=== PATIENT | male | born 1960 ===

== ENCOUNTER → 2019-06-27 | Day surgery (SDC) | payer OTHER ==
[~2019-06-27] VITALS: Ht 177.8 cm; Wt 95.3 kg
[~2019-06-27] MED LIST: SIMVASTATIN5 MG PO
--- NOTE | ~2019-06-27 | POSTOPNOTE ---
[place], [place] POSTOPERATIVE PROGRESS NOTE NAME: WENDY RAZO UNIT #: [id number] ROOM: DOCTOR: JUSTIN LYNN MD BIRTHDATE: [birth year] DATE: 06/27/19 GI NOTE PREOPERATIVE DIAGNOSIS: RIGHT LOWER QUADRANT PAIN, ABDOMINAL PAIN, FAMILY HISTORY OF COLON CA POSTOP LOWER GI PROC/FINDINGS: LOWER GI PROCEDURE/SURGERY: COLONOSCOPY WITH PIECEMEAL POLYPECTOMY LOWER GI FINDINGS: DIVERTICULOSIS, CECAL POLYP JUSTIN LYNN MD CM:POSTOPN 1350 [id number] JUSTIN LYNN MD 07/01/19 1352 NAVARRO [email or web address].R
--- NOTE | ~2019-06-27 | O ---
[place], [place] OPERATIVE NOTE [id number] UNIT #: [id number] ROOM: DOCTOR: JUSTIN LYNN MD BIRTHDATE: [birth year] DOS: 06/27/2019 GASTROENDOSCOPIC REPORT: This is a 58-year-old patient who has presented with right lower quadrant pain, abdominal pain, family history of colon CA. ALLERGIES: No known medication. FAMILY HISTORY: Grandfather with colonic carcinoma. PAST SURGICAL HISTORY: Left ankle lithotripsy. PAST MEDICAL HISTORY: Hypertension, hyperlipidemia. PROCEDURE: Today's procedure part of investigation is colonoscopy plus piecemeal polypectomy. PREMEDICATION: Propofol. SCOPE: Olympus forward-viewing colonoscope 10L video. REPORT: After putting the patient in left lateral position and application of lubricant to the scope, the scope was introduced. Thereafter, under direct visualization, advanced through the length of colon without difficulty. Severe diverticulosis of sigmoid colon was noticed. Sessile colonic polyp at the base of cecum appreciated with piecemeal polypectomy removed. Air was suctioned out. The patient was extubated, tolerated the procedure well. IMPRESSION: Diverticulosis. Cecal polyp, status post piecemeal polypectomy. PLAN: High fiber fruit diet. ACTIVITY: Ad han. FOLLOWUP: As outpatient. Thank you very much indeed. [place], [place] OPERATIVE NOTE NAME[id number] UNIT #: [id number] ROOM: DOCTOR: JUSTIN LYNN MD BIRTHDATE: [birth year] JUSTIN LYNN MD CM:OPRECORD:OPERATIVE NOTE 1454 1504 JUSTIN LYNN MD 06/27/19 1504 interface
[2019-06-27 14:42] VITALS: BP 125/85
[2019-06-27 14:57] VITALS: BP 133/84
[2019-06-27 15:12] VITALS: BP 136/86
== END | disposition home or self-care (01) ==
LOC: SDC 06-23 14:45
DX: D12.0 Benign neoplasm of cecum (principal); I10 Essential (primary) hypertension; E78.5 Hyperlipidemia, unspecified; K44.9 Diaphragmatic hernia without obstruction or gangrene; K57.30 Diverticulosis of large intestine without perforation or abscess without bleeding; Z98.890 Other specified postprocedural states; Z86.010 Personal history of colon polyps; Z87.891 Personal history of nicotine dependence; Z80.0 Family history of malignant neoplasm of digestive organs